=== PATIENT | female | born 1995 | race Caucasian/White ===

== ENCOUNTER 2021-07-19 13:45 | Outpatient (CLI) | payer OTHER ==
[2021-07-19] MEDS ORDERED: PRENATAL CAPLE1 EAC1 PO (14:58)
== END 2021-07-19 23:05 | disposition home or self-care (01) ==
LOC: EDBD 13:45 → OBS/DEL 13:45
PROVIDERS: ATTEND Specialist
DX: O99.613 Diseases of the digestive system complicating pregnancy, third trimester (principal); K81.9 Cholecystitis, unspecified; Z3A.35 35 weeks gestation of pregnancy